=== PATIENT | female | born 1980 | race American Indian/Alaskan Native ===

== ENCOUNTER 2018-05-03 10:35 | Outpatient (CLI) | payer BC ==
[2018-05-03 11:14] LABS: Hemoglobin 13.2 gm/dl (10.1-14.3); Mean Corpuscular HGB Conc 33 % (30-34); Mean Corpuscular Volume 76 fl (79-97); Platelet Count 310 K/mm3 (140-440); Red Blood Count 5.28 M/mm3 (3.65-5.03); Red Cell Distribution Width 15.1 % (13.2-15.2)
[2018-05-03 11:36] LABS: Albumin 3.6 g/dL (3.9-5); BUN/Creatinine Ratio 10; Blood Urea Nitrogen 7 mg/dL (7-17); Calcium 9.2 mg/dL (8.4-10.2); Hemolysis Index 4
[2018-05-03 11:37] LABS: Alanine Aminotransferase < 5 units/L (7-56)
[2018-05-03 12:00] LABS: Erythrocyte Sedimentation Rate 18 mm/Hr (0-20)
[2018-05-07 15:02] LABS: ANA Screen, IFA Negative (Negative)
== END 2018-05-03 10:36 | disposition home or self-care (01) ==
LOC: LAB 10:35
PROVIDERS: ATTEND Specialist
DX: G65.1 Sequelae of other inflammatory polyneuropathy (principal); M79.7 Fibromyalgia; Z91.018 Allergy to other foods
CPT/HCPCS: 36415; 80053; 82306; 82607; 83036; 83921; 84436; 84443; 84479; 84480; 85027; 85652; 86038; 86225; 86592; 86618